=== PATIENT | female | born 1970 | race Caucasian/White ===

== ENCOUNTER 2020-10-06 11:12 | Outpatient (CLI) | payer OTHER | END 2020-10-06 11:15 | disposition home or self-care (01) | LOC: SONOGRAMA 11:12 | PROVIDERS: ATTEND Pathology Anatomic Pathology & Clinical Pathology | DX: E04.1 Nontoxic single thyroid nodule (principal) ==

== ENCOUNTER 2024-01-23 10:32 | Outpatient (CLI) | payer OTHER | END 2024-01-23 10:35 | disposition home or self-care (01) | LOC: SONOGRAMA 10:32 | PROVIDERS: ATTEND Pathology Anatomic Pathology & Clinical Pathology | DX: D34 Benign neoplasm of thyroid gland (principal); E07.89 Other specified disorders of thyroid; E04.2 Nontoxic multinodular goiter ==

== ENCOUNTER 2025-05-03 18:08 | Emergency (ER) | payer OTHER ==
[~2025-05-03] VITALS: Ht 160 cm; Wt 63.5 kg
[2025-05-03] MEDS ORDERED: CITALOPRAM HBR10 MG (18:12)
[2025-05-03] MEDS ORDERED: BUPROPION HCL75 MG (18:12)
[2025-05-03] MEDS ORDERED: YUVAFEM10 MCG (18:12)
[2025-05-03] MEDS ORDERED: PROGESTERONE100 M1 (18:13)
[2025-05-03] MEDS ORDERED: GENTAMICIN SULFATE 0.15 MG/DR DROPS 5ML OP STA (19:17)
[2025-05-03] MEDS ORDERED: GENTAMICIN SULFATE 0.15 MG/DR DROPS 5ML OP ONE (20:24)
== END 2025-05-03 21:12 | disposition home or self-care (01) ==
LOC: ER 18:08
DX: H10.219 Acute toxic conjunctivitis, unspecified eye (principal)

== ENCOUNTER 2025-05-06 07:29 | Outpatient (CLI) | payer OTHER ==
[~2025-05-06 07:29] MED LIST: BUPROPION HCL75 MG; CITALOPRAM HBR10 MG; PROGESTERONE100 M1; YUVAFEM10 MCG
== END 2025-05-06 07:34 | disposition home or self-care (01) ==
LOC: SONOGRAMA 07:29
PROVIDERS: ATTEND Internal Medicine Endocrinology, Diabetes & Metabolism
DX: E04.2 Nontoxic multinodular goiter (principal)